=== PATIENT | female | born 1965 | race Caucasian/White ===

== ENCOUNTER 2023-04-22 19:42 | Emergency (ER) | payer BC ==
[2023-04-22] MEDS: IBUPROFEN 600 MG TAB PO STA (20:37)
[2023-04-22 20:54] VITALS: BP 184/82; PULSE 81; RESP 18; TEMP 98
--- NOTE | 2023-04-22 21:37 | XR ---
EXAMINATION TYPE: XR forearm LT DATE OF EXAM: 04/22/2023 9:02 PM CLINICAL INDICATION:Female, 58 years old with history of injury; [facility] COMPARISON: None TECHNIQUE: XR forearm LT; forearm was examined in AP and lateral projections. FINDINGS/IMPRESSION: Acute fracture of the distal radius, no intra-articular extension definitively visualized. There is a lso suspected avulsion fracture of the ulnar styloid process.
--- NOTE | 2023-04-22 22:32 | ED ---
Upper Extremity HPI - General Chief Complaint: Extremity Injury, Upper Stated Complaint: pulled by dog Time Seen by Provider: 04/22/23 20:11 Source: patient Mode of arrival: ambulatory Limitations: no limitations - History of Present Illness Initial Comments: 58-year-old female presenting with chief complaint of left arm pain. Patient was pulled by a dog on a leash. Pain is focused mainly in the wrist. She does have pain from the level of the hand to the elbow. She is a bit sore from the elbow to the shoulder, however she has good range of motion at the level of the shoulder. No numbness or tingling. - Related Data Previous Rx's Medication Instructions Recorded HYDROcodone/APAP 7.5-325MG [[place] 1 tab PO Q6HR PRN 3 Days #12 tab 04/22/23 7.5-325] Allergies Allergy/AdvReac Type Severity Reaction Status Date / Time No Known Allergies Allergy Verified 04/22/23 19:58 Review of Systems ROS Statement: Those systems with pertinent positive or pertinent negative responses have been documented in the HPI. ROS Other: All systems not noted in ROS Statement are negative. Past Medical History Past Medical History: Cancer History of Any Multi-Drug Resistant Organisms: None Reported Past Surgical History: No Surgical Hx Reported Past Psychological History: No Psychological Hx Reported Smoking Status: Never smoker Past Alcohol Use History: Occasional Past Drug Use History: None Reported General Exam Limitations: no limitations General appearance: alert, in no apparent distress Head exam: Present: atraumatic, normocephalic Eye exam: Present: normal appearance Neck exam: Present: normal inspection Respiratory exam: Absent: respiratory distress Cardiovascular Exam: Present: regular rate Left Hand Wrist exam: Present: tenderness. Absent: full ROM, swelling Vascular: Present: radial pulse (2+). Absent: vascular compromise Neurological exam: Present: alert, oriented X3 Psychiatric exam: Present: normal affect, normal mood Skin exam: Present: warm, dry Course Vital Signs 04/22/23 19:56 Temperature 98 F Pulse Rate 81 Respiratory 18 Rate Blood Pressure 184/82 O2 Sat by Pulse 100 Oximetry Procedures - Orthopedic Splinting/Casting Injury #1 Side: left Upper Extremity Injury Location: wrist Upper Extremity Immobilizer: sugar tong splint Medical Decision Making - Medical Decision Making Was pt. sent in by a medical professional or institution (, PA, ANSWERING SERVICE AGENT, urgent care, hospital, or care home...) When possible be specific @ -No Did you speak to anyone other than the patient for history (EMS, parent, family, police, friend...)? What history was obtained from this source @ -No Did you review nursing and triage notes (agree or disagree)? Why? @ -I reviewed and agree with nursing and triage notes Were old charts reviewed (outside hosp., previous admission, EMS record, old EKG, old radiological studies, urgent care reports/EKG's, care home records)? Report findings @ -No old charts were reviewed Differential Diagnosis (chest pain, altered mental status, abdominal pain women, abdominal pain men, vaginal bleeding, weakness, fever, dyspnea, syncope, headache, dizziness, GI bleed, back pain, seizure, CVA, palpatations, mental health, musculoskeletal)? @ -Differential Musculoskeletal Muscular strain, contusion, ligament sprain, fracture, arthritis, septic arthritis, bursitis, cellulitis, muscle spasm, nerve compression, DVT, arterial occlusion, herpes zoster, electrolyte abnormality, tumor.... This is not meant to be in all inclusive list EKG interpreted by me (3pts min.). @ -As above X-rays interpreted by me (1pt min.). @ -Acute fracture of the distal radius, no intra-articular extension definitively visualized. There is also suspected avulsion fracture of the ulnar styloid process CT interpreted by me (1pt min.). @ -None done U/S interpreted by me (1pt. min.). @ -None done What testing was considered but not performed or refused? (CT, X-rays, U/S, labs)? Why? @ -None What meds were considered but not given or refused? Why? @ -None Did you discuss the management of the patient with other professionals (professionals i.e. , PA, ANSWERING SERVICE AGENT, lab, RT, psych nurse, social worker assistant, manager food, teacher, security police officer, case management coordinator)? Give summary @ -No Was smoking cessation discussed for >3mins.? @ -No Was critical care preformed (if so, how long)? @ -No Were there social determinants of health that impacted care today? How? (Homelessness, low income, unemployed, alcoholism, drug addiction, transportation, low edu. Level, literacy, decrease access to med. care, skilled nursing, rehab)? @ -No Was there de-escalation of care discussed even if they declined (Discuss DNR or withdrawal of care, Hospice)? DNR status @ -No What co-morbidities impacted this encounter? (DM, HTN, Smoking, COPD, CAD, Cancer, CVA, ARF, Chemo, Hep., AIDS, mental health diagnosis, sleep apnea, morbid obesity)? @ -None Was patient admitted / discharged? Hospital course, mention meds given and route, prescriptions, significant lab abnormalities, going to OR and other pertinent info. @ -58-year-old female presenting with chief complaint of left arm pain. She is neurovascularly intact. X-ray shows distal radius fracture with avulsion fracture of the ulnar styloid. Patient is placed in a sugar-tong splint and provided with an arm sling. Educated on supportive management. Follow-up with orthopedics. Discharged home. Follow-up with PCP. Report back to ER with any new or worsening symptoms. Discussed return parameters and answered all questions. Patient conveyed verbal understanding and agreed to the plan. I discussed this case in detail with my attending Dr. Rodriguez Undiagnosed new problem with uncertain prognosis? @ -No Drug Therapy requiring intensive monitoring for toxicity (Heparin, Nitro, Insulin, Cardizem)? @ -No Were any procedures done? @ -Splint applied Diagnosis/symptom? @ -Radius fracture Acute, or Chronic, or Acute on Chronic? @ -Acute Uncomplicated (without systemic symptoms) or Complicated (systemic symptoms)? @ -Uncomplicated Side effects of treatment? @ -No Exacerbation, Progression, or Severe Exacerbation? @ -No Poses a threat to life or bodily function? How? (Chest pain, [place], [place], pneumonia, PE, COPD, DKA, ARF, appy, cholecystitis, CVA, Diverticulitis, Homicidal, Suicidal, threat to staff... and all critical care pts) @ -No Disposition Clinical Impression: Distal radius fracture Disposition: HOME SELF-CARE Condition: Good Instructions (If sedation given, give patient instructions): Wrist Fracture in Adults (ED) Additional Instructions: Follow-up with orthopedics. Report back to ER with any new or worsening symptoms. Take Motrin and Tylenol as needed. Keep in mind that you're medication prescribed to you for breakthrough pain also contains Tylenol, do not take more than 4000 mg of Tylenol in 24 hours. Prescriptions: HYDROcodone/APAP 7.5-325MG [[place] 7.5-325] 1 tab PO Q6HR PRN 3 Days #12 tab PRN Reason: Pain Is patient prescribed a controlled substance at d/c from ED?: No Referrals: Nonstaff,Physician [Primary Care Provider] - 1-2 days Martell Rivera MD [STAFF PHYSICIAN] - 1-2 days Time of Disposition: 22:31
[2023-04-22] MEDS: ACET/COD 300 MG/30 MG STARTER PACK 6 TAB BTL PO STA (22:50)
[2023-04-22] MEDS: HYDROcodone/APAP 7.5-325MG 1 EACH TAB PO ONE (22:50)
== END 2023-04-22 22:51 | disposition home or self-care (01) ==
LOC: EC 19:42
DX: S52.502A Unspecified fracture of the lower end of left radius, initial encounter for closed fracture (principal); W18.30XA Fall on same level, unspecified, initial encounter
CPT/HCPCS: 29125; 99283